=== PATIENT | female | born 1950 | race Caucasian/White ===

== ENCOUNTER 2023-05-30 06:55 | Outpatient (RCR) | payer MEDICARE, OTHER, SELFPAY | END 2023-05-30 23:59 | disposition home or self-care (01) | LOC: RPT 06:55 | PROVIDERS: ATTENDING PHYSICIAN Obstetrics & Gynecology; FAMILY PHYSICIAN Family Medicine | DX: N39.41 Urge incontinence (principal) | CPT/HCPCS: 97162; 97535 ==

== ENCOUNTER 2023-06-22 12:04 | Outpatient (RCR) | payer MEDICARE, OTHER, SELFPAY | END 2023-06-22 23:59 | disposition home or self-care (01) | LOC: RPT 12:04 | PROVIDERS: ATTENDING PHYSICIAN Obstetrics & Gynecology; FAMILY PHYSICIAN Family Medicine | DX: N39.41 Urge incontinence (principal); Z73.6 Limitation of activities due to disability; N39.3 Stress incontinence (female) (male); M62.81 Muscle weakness (generalized); Z98.890 Other specified postprocedural states; Z98.0 Intestinal bypass and anastomosis status | CPT/HCPCS: 97110; 97535 ==

== ENCOUNTER 2023-08-08 12:05 | Outpatient (RCR) | payer MEDICARE, OTHER, SELFPAY | END 2023-08-08 23:59 | disposition home or self-care (01) | LOC: RPT 12:05 | PROVIDERS: ATTENDING PHYSICIAN Obstetrics & Gynecology; FAMILY PHYSICIAN Family Medicine | DX: N39.41 Urge incontinence (principal); Z73.6 Limitation of activities due to disability; N39.3 Stress incontinence (female) (male) | CPT/HCPCS: 97110; 97112 ==

== ENCOUNTER → 2023-08-22 13:25 | Outpatient (REF) | payer MEDICARE, OTHER, SELFPAY | LOC: WDC 13:25 | PROVIDERS: ATTENDING PHYSICIAN Family Medicine | DX: Z12.31 Encounter for screening mammogram for malignant neoplasm of breast (principal); Z78.0 Asymptomatic menopausal state; M81.0 Age-related osteoporosis without current pathological fracture | CPT/HCPCS: 77063; 77067; 77080 ==

== ENCOUNTER 2023-08-31 12:06 | Outpatient (RCR) | payer MEDICARE, OTHER, SELFPAY | END 2023-08-31 23:59 | disposition home or self-care (01) | LOC: RPT 12:06 | PROVIDERS: ATTENDING PHYSICIAN Obstetrics & Gynecology; FAMILY PHYSICIAN Family Medicine | DX: N39.41 Urge incontinence (principal); Z73.6 Limitation of activities due to disability; M62.81 Muscle weakness (generalized) | CPT/HCPCS: 97110; 97112; 97535 ==

== ENCOUNTER 2023-09-29 12:06 | Outpatient (RCR) | payer MEDICARE, OTHER, SELFPAY | END 2023-09-29 23:59 | disposition home or self-care (01) | LOC: RPT 12:06 | PROVIDERS: ATTENDING PHYSICIAN Obstetrics & Gynecology; FAMILY PHYSICIAN Family Medicine | DX: N39.41 Urge incontinence (principal); Z73.6 Limitation of activities due to disability | CPT/HCPCS: 97110; 97112 ==

== ENCOUNTER 2023-11-09 11:03 | Outpatient (RCR) | payer MEDICARE, OTHER, SELFPAY | END 2023-11-09 23:59 | disposition home or self-care (01) | LOC: RPT 11:03 | PROVIDERS: ATTENDING PHYSICIAN Obstetrics & Gynecology; FAMILY PHYSICIAN Family Medicine | DX: N39.41 Urge incontinence (principal); Z73.6 Limitation of activities due to disability | CPT/HCPCS: 97110; 97112; 97535 ==

== ENCOUNTER 2023-12-08 11:31 | Outpatient (RCR) | payer MEDICARE, OTHER, SELFPAY | END 2023-12-08 23:59 | disposition home or self-care (01) | LOC: RPT 11:31 | PROVIDERS: ATTENDING PHYSICIAN Obstetrics & Gynecology; FAMILY PHYSICIAN Family Medicine | DX: N39.41 Urge incontinence (principal); Z73.6 Limitation of activities due to disability | CPT/HCPCS: 97110; 97112 ==

== ENCOUNTER → 2024-05-13 11:19 | Outpatient (REF) | payer MEDICARE, OTHER, SELFPAY | LOC: RAD 11:19 | PROVIDERS: ATTENDING PHYSICIAN Family Medicine | DX: M79.672 Pain in left foot (principal) | CPT/HCPCS: 73630 ==

== ENCOUNTER → 2024-08-22 13:40 | Outpatient (REF) | payer MEDICARE, OTHER, SELFPAY | LOC: WDC 13:40 | PROVIDERS: ATTENDING PHYSICIAN Obstetrics & Gynecology Gynecology; FAMILY PHYSICIAN Family Medicine | DX: Z12.31 Encounter for screening mammogram for malignant neoplasm of breast (principal) | CPT/HCPCS: 77063; 77067 ==

== ENCOUNTER 2025-03-03 06:26 | Day surgery (SDC) | payer MEDICARE, OTHER, SELFPAY | END 2025-03-03 13:57 | disposition home or self-care (01) | LOC: GI 06:26 | PROVIDERS: ATTENDING PHYSICIAN Internal Medicine Gastroenterology | DX: D12.0 Benign neoplasm of cecum (principal); K57.30 Diverticulosis of large intestine without perforation or abscess without bleeding; K64.8 Other hemorrhoids; R19.4 Change in bowel habit; Z98.0 Intestinal bypass and anastomosis status | CPT/HCPCS: 45385; 45380; 88305 ==

== ENCOUNTER 2025-04-17 00:14 | Emergency (ER) | payer MEDICARE, OTHER, SELFPAY ==
[2025-04-17 00:23] VITALS: BP 150/75
--- NOTE | 2025-04-17 01:06 | ED.GENMED ---
History of Present Illness
General
Chief Complaint: Musculo-Skeletal Complaint
Source: patient
Exam Limitations: none
Time Seen by Provider: 04/17/25 00:52
Nursing documentation reviewed up to this point in time: agreed with
History of Present Illness
History of Present Illness:
Note:
CHIEF COMPLAINT(S)
Pain in the hand following a fall.
HISTORY OF PRESENT ILLNESS
The patient is a 75-year-old female with pmh of PE, HLP, GERD, arthritis, who presented with pain in her thumb and hand following a fall that occurred while she was walking her dog around 2 PM. She reports that while on an unfamiliar path with holes
and soft ground, she fell onto her knees and then used her hands to help herself up. She felt something 'move' in her hand when she attempted to push herself up and has experienced soreness in the area since. She felt something snap. The patient
does not remember experiencing immediate pain due to being shaken up from the fall. She describes the pain as traveling up the hand and not associated with any tingling sensation but feels a tightness that makes it difficult to use her hand for
certain tasks, such as pressing a leash release. The pain is mainly located at the base of the thumb. The patient denies hitting her head during the fall and reports no injuries to her knees, which had previous replacements. She manages the pain
currently with Tylenol, 500 mg. She did not hit her head or loose consciousness. She denies any other injuries.
PAST MEDICAL AND SURGICAL HISTORY
The patient has a history of knee replacements.
REVIEW OF SYSTEMS
- Musculoskeletal: Reports pain and difficulty with hand movements. No problems in knees following recent replacements.
- Neurological: No head trauma or neurological symptoms reported.
PHYSICAL EXAM
General: Alert, no acute distress.
Skin: Warm, dry.
Head: Normocephalic, atraumatic.
Neck: Supple, trachea midline.
Eyes, Ears, Nose, Mouth, and Throat: Oral mucosa moist.
Cardiovascular: Normal peripheral perfusion, No edema.
Respiratory: Respirations are non-labored.
Musculoskeletal: Tenderness over the base of the right thumb and metacarpals, no tenderness over the carpal bones, difficulty with movements associated with soreness and tightness restricted to the base of the thumb. Full flexion and extension at
wrist and elbow.
Neurological: Alert and oriented to person, place, time, and situation, No focal neurological deficit observed.
Psychiatric: Cooperative, appropriate mood & affect.
PLAN
Ordered X-rays of the hand to assess for sprain or dislocation. Pain management advised with continued use of acetaminophen as needed. The patient agreed to the plan and is awaiting imaging results. Follow-up will be conducted based on X-ray
findings.
Patient follows with Dr. Bates and has hand multiple surgeries with him in his right hand
IMAGE INTERPRETATION
Images reviewed my Dr. Ziegler and I, we appreciate a fracture at the 1st proximal phalanx
DIFFERENTIAL DIAGNOSIS
The Differential Diagnosis includes, in no particular order and is not limited to:
1. Hand Sprain
2. Thumb Dislocation
3. Fracture of the Hand
4. Ligament Injury
5. Osteoarthritis Flare
6. Tenosynovitis
7. Tendinitis
8. Soft Tissue Injury
9. Contusion Injury
10. Rheumatoid Arthritis Exacerbation
CHART REVIEW
reviewed discharge summary from 02/28/15
MDM/DISPOSITION
The patient is a 75-year-old female with pmh of PE, HLP, GERD, arthritis, who presented with pain in her thumb and hand following a fall that occurred while she was walking her dog around 2 PM. She did not loose consciousness or endure any other
injuries.
Physical exam and x-ray concerning for possible 1st proximal phalangeal fracture
Reviewed case with ED attending
Will place in thumb spica splint and instruct close follow up with
She is neurovascularly intact
Pt stable for discharge
Past History
Past History
ED Past Medical History: GERD and Other (Diverticulitis, ulcerative colitis, migraines, anxiety depression)
ED Past Surgical History: Orthopedic
Social History
Tobacco: Non-smoker
Phy Exam
Physical Exam
Physical Exam:
see hpi
Course
Orders/Labs/Results
Orders:
Orders
04/17/25 01:32
Acetaminophen [Tylenol] 1,000 mg PO NOW STA
CR Hand - Right 2 Views Urgent
Comment:
Reason For Exam: right hand pain, pain at base of right wrist
CR Wrist - Right Min 3 Views Urgent
Comment:
Reason For Exam: right wrist pain following fall
Vital Signs
Initial and Last Documented VS:
Initial Vital Signs
Temp Pulse BP Pulse Ox
97.2 F 86 150/75 96
04/17/25 00:23 04/17/25 00:23 04/17/25 00:23 04/17/25 00:23
Last Documented Vital Signs
Temp Pulse BP Pulse Ox
97.2 F 86 150/75 96
04/17/25 00:23 04/17/25 00:23 04/17/25 00:23 04/17/25 01:07
*Pulse Oximetry
SaO2: 96
Oxygen Mode of Delivery: Room air
Patient hypoxic: no
*Critical Care Note
Total Time (30-74mins, 75-104mins- exclusive of procedures): Not Applicable
ED Attending Note
-
Portions of this chart may have been created with voice recognition software.� Occasional wrong word or��sound alike� substitutions may have occurred due to the inherent limitations of voice recognition software.
Discharge Plan
Departure
Patient Disposition: Home (Routine Discharge)
Date of Disposition: 04/17/25
Time of Disposition: 03:22
Patient with high blood pressure during this ER visit?: Yes
Condition: Good
Discharge Problem:
Fracture of thumb, proximal phalanx, right, closed
Instructions: Finger Fracture ED, How to care for a splint, BLOOD PRESSURE
Prescriptions:
No Action
balsalazide [Colazal] 750 MG capsule
750 mg PO BID
famotidine 40 MG tablet
40 mg PO BID
docusate sodium 100 MG capsule
100 mg PO DAILY
Lotemax 3.5 GM ointment
1 applic BOTH EYES TUFR
fluticasone propionate 1 SPRAY spray,suspension
2 spray intranasal DAILY
acetaminophen 650 mg Tablet Extended Release
1,300 mg PO BID
pantoprazole [Protonix] 40 mg Tablet,Delayed Release (Dr/Ec)
40 mg PO Q72H
Citrucel 500 mg Tablet
1,000 mg PO DAILY
Ocuvite Adult 50 Plus 250 mg (90 mg-160 mg) Capsule
1 cap PO QPM
One A Day
1 tab PO DAILY
vitamin B6-vitamin E-magnesium
1 tab PO DAILY
phenazopyridine [Pyridium] 200 mg tablet
200 mg PO PC PRN (Reason: pain) Qty: 6 1RF
Referrals:
Dillan Bates MD [Active, Orthopedics] - Call in 1-3 days for appt
Activity Restrictions/Additional Instructions:
Please leave splint in place until you see Dr. Bates.
Please keep splint dry.
PLEASE RETURN TO THE ER SHOULD YOU DEVELOP AN ACUTE WORSENING OF YOUR SYMPTOMS, INCREASING PAIN, SWELLING, PALLOR IN YOUR RIGHT UPPER EXTREMITIES OR FINGERS, LOSS OF SENSATION, OR ANY OTHER SIGNS OR SYMPTOMS WORRISOME TO YOU.
Interventions
Interventions:
*Risk Screen - Suicide Last Done: 04/17/25 00:32
*General Assessment Last Done: 04/17/25 00:32
*Neglect/Abuse Screening Last Done: 04/17/25 00:32
*ED- Fall Risk Assessment Last Done: 04/17/25 00:32
*ED COVID-19 Vaccine History Last Done: 04/17/25 00:32
*ED Influenza Vaccine History Last Done: 04/17/25 00:32
*Nursing Disposition Last Done: 04/17/25 03:30
ED-Musculoskeletal Assessment Last Done: 04/17/25 01:08
Discharge Date and Time
Discharge Date/Time: 04/17/25 03:30
Print Language: BRUNEIAN
[2025-04-17] MEDS: TYLENOL 1000 MG PO (01:40)
== END 2025-04-17 03:30 | disposition home or self-care (01) ==
LOC: EMR 00:14
PROVIDERS: EMERGENCY PHYSICIAN Emergency Medicine
DX: S62.511A Displaced fracture of proximal phalanx of right thumb, initial encounter for closed fracture (principal); W01.0XXA Fall on same level from slipping, tripping and stumbling without subsequent striking against object, initial encounter; Y93.K1 Activity, walking an animal; R03.0 Elevated blood-pressure reading, without diagnosis of hypertension; E78.5 Hyperlipidemia, unspecified; K51.90 Ulcerative colitis, unspecified, without complications; K21.9 Gastro-esophageal reflux disease without esophagitis; F41.8 Other specified anxiety disorders; M19.90 Unspecified osteoarthritis, unspecified site; Z86.711 Personal history of pulmonary embolism; Z96.653 Presence of artificial knee joint, bilateral
CPT/HCPCS: 99283; 73110; 73120

== ENCOUNTER → 2025-05-01 19:04 | Outpatient (REF) | payer MEDICARE, OTHER, SELFPAY | LOC: PAVMRI 19:04 | PROVIDERS: ATTENDING PHYSICIAN Orthopaedic Surgery; FAMILY PHYSICIAN Family Medicine | DX: M79.641 Pain in right hand (principal) | CPT/HCPCS: 73218 ==

== ENCOUNTER → 2025-05-02 17:45 | Outpatient (REF) | payer MEDICARE, OTHER, SELFPAY | LOC: PAVMRI 17:45 | PROVIDERS: ATTENDING PHYSICIAN Physical Medicine & Rehabilitation; FAMILY PHYSICIAN Family Medicine | DX: M54.12 Radiculopathy, cervical region (principal); M75.42 Impingement syndrome of left shoulder | CPT/HCPCS: 72141 ==